=== PATIENT | female | born 1985 | race American Indian/Alaskan Native ===

== ENCOUNTER 2017-01-25 14:48 | Emergency (ER) | payer OTHER ==
[~2017-01-25] VITALS: Ht 167.6 cm; Wt 61.4 kg
[~2017-01-25 14:48] MED LIST: ABILIFY30 MG PO; EXCEDRIN1 TAB PO; IRON325 MG PO; MOTRIN 800800 MG/TAB PO; MULTI VITAMINS1 TAB PO; NEXIUM 20MG20 MG; NORCO 325 MG-51 TAB PO; PERCOCET 325 MG1 TA2 PO; PRENATAL PO; PRENATAL1 TA1 PO; SENOKOT S 50 MG1 TAB PO; TYLENOL 500MG500 MG PO; ZOLOFT 100MG100 MG PO
[2017-01-25 15:00] VITALS: BP 112/76; PULSE 96; TEMP 99.1
[2017-01-25] MEDS ORDERED: IRON325 MG PO (15:04)
== END 2017-01-25 15:52 | disposition home or self-care (01) ==
LOC: COL.ER 14:48
DX: M79.672 Pain in left foot (principal)

== ENCOUNTER 2017-02-12 13:22 | Outpatient (CLI) | payer OTHER ==
[~2017-02-12] VITALS: Ht 165.1 cm; Wt 59.0 kg
[2017-02-12 14:10] VITALS: BP 117/75; PULSE 69; TEMP 98
[2017-02-12] MEDS ORDERED: VITAMIN D 50,1.25 MG PO (14:10)
[2017-02-12] MEDS ORDERED: EXCEDRIN TENSIO1 TAB PO (14:10)
[2017-02-12 17:16] VITALS: BP 116/72; PULSE 61
== END 2017-02-12 17:19 | disposition home or self-care (01) ==
LOC: COL.CAR 13:22
DX: R55 Syncope and collapse (principal)
CPT/HCPCS: C1764

== ENCOUNTER → 2017-03-01 | Outpatient (CLI) | payer OTHER ==
[~2017-03-01] MED LIST changes: +EXCEDRIN TENSIO1 TAB PO; +VITAMIN D 50,1.25 MG PO
== END ==
LOC: COL.CARD 12:37
DX: R55 Syncope and collapse (principal)